=== PATIENT | female | born 1945 | race Caucasian/White ===

== ENCOUNTER → 2016-10-19 09:56 | Outpatient (CLI) | payer MEDICARE ==
[2016-09-16 08:58] VITALS: BMI 21.9
[~2016-10-19 09:56] MED LIST: BAYER CHEWABLE81 MG PO; CALTRATE 600 M600 M1 PO; CARDIZEM CD180 MG PO; COZAAR50 MG PO; GLUCOSAMINE & C1 CAP PO; HYDROCODON-ACE1 EAC7 PO; HYZAAR 100-25 T1 TAB PO; HYZAAR 50-12.51 TAB PO; K-DUR20 MEQ PO; LASIX40 MG PO; MILK THISTLE140 MG PO; MULTIPLE VITAMI1 TA1 PO; NEPHRO-VITE RX1 TAB; NEPHRO-VITE RX1 TAB PO; OMEGA 3 FISH OI1 CAP PO; PROBIOTIC1 EAC1 PO; ULTRAM50 MG PO; VITAMIN E400 UNI2 PO
== END | disposition home or self-care (01) ==
LOC: D.RAD 09:56
DX: Z98.890 Other specified postprocedural states (principal)

== ENCOUNTER → 2018-06-13 18:44 | Outpatient (CLI) | payer MEDICARE ==
[2016-09-16 08:58] VITALS: BMI 21.9
== END | disposition home or self-care (01) ==
LOC: D.MAMMO 11:30
DX: Z12.31 Encounter for screening mammogram for malignant neoplasm of breast (principal)

== ENCOUNTER 2021-02-24 09:09 | Inpatient (IN) | payer MEDICARE ==
[~2021-02-24] VITALS: Ht 154.9 cm; Wt 51.4 kg
--- NOTE | ~2021-02-24 | HEMODYNAMI ---
PATIENT:CASSANDRA BEARD MEDICAL RECORD: [id number] : 41 [id number] ADMISSION DATE: 02/24/21 Generatedon:110:50 Patient name: CASSANDRA BEARD Patient #: [id number] : 1945 Date of study: 03/02/2021 Page: Of Hemodynamic Procedure Report Patient Data Patient Demographics Procedure consent was obtained First Name: CASSANDRA Gender: Female Last Name: CHIRAG : 1945 Middle Initial: M Age: 75 year(s) Patient #: [id number] Race: SSN: [id number] Additional ID: [id number] Contact details Address: [address] [place] [address] State: [place] City: [place] Zip code: [address] Past Medical History Allergies Allergen Reaction Date Comments Reported Other allergy 02/28/2021 MPEREDINE, RYANN INHIBITORS, PCN, AVALIDE, BENICAR Other allergy [facility]/02/[facility] Ad[facility] Admission Data Admission Date: 02/24/2021 Admission Time: 12:19 Arrival Date: 02/24/2021 Arrival Time: 12:19 Admit Source: Emergency Insurance Payor: Medicare department [facility] #: [id number] Room #: D2103 Height (in.): 60.63 BSA: 1.47 (m2) Height (cm.): 154 BMI: 21.5 (kg/m2) Weight (lbs.): 112.44 Weight (kg.): 51 Lab Results Lab Result Date: 03/02/2021 Lab Result Time: 0:00 Biochemistry Name Units Result Min Max BUN mg/dl 19 --(----)*- 7 18 Creatinine mg/dl 0.8 --(-*--)-- 0.6 1.3 eGFR ml/min 73.49357 *-(----)-- 90 120 NONAFRICAN CBC Name Units Result Min Max Hematocrit % 36.3 *-(----)-- 42 54 Hemoglobin g/dl 12.5 *-(----)-- 13.5 17.5 Procedure Procedure Types Cath Procedure Diagnostic Procedure Right Heart RHC and LHC w/Coronaries Sedation Charges Moderate Sedation 10-24 minutes Procedure Description Procedure Date Procedure Date: 03/02/2021 Procedure Start Time: 10:29 Procedure End Time: 10:47 Procedure Staff Name Function Brandon Reyes MD Performing Physician Xiao Jonas RT Monitor Denny Vasquez RN Nurse Kassandra Guthrie RT Scrub Procedure Data Cath Procedure Fluoroscopy Diagnostic fluoroscopy Total fluoroscopy Time: 2.2 time: 2.2 min min Diagnostic fluoroscopy Total fluoroscopy dose: 207 dose: 207 mGy mGy Contrast Material Contrast Material Type Amount (ml) Isovue 300 52 Entry Location Entry Primary Successful Side Size Upsize Upsize Entry Closure Succes sful Closure Location (Fr) 1 (Fr) 2 (Fr) Remarks Device Remarks Femoral Right 5 Fr Exoseal artery Femoral Right 7 Fr vein Short Estimated blood loss: 10 ml Diagnostic catheters Device Type Used For End Catheter Placement SWAN 7Fr Thermodilution Pressure cather (131F7P) Measurement MULTIPACK JL 4.0 5Fr Procedure catheter MULTIPACK 3DRC 5Fr Procedure catheter MULTIPACK Pigtail 5 Fr Ventriculography catheter Procedure Complications No complications Procedure Medications Medication Administration Route Dosage 0.9% NaCl I.V. 100 ml/hr Oxygen etCO2 Nasal cannula 2 l/min Heparin Flush Bag added to field 2 bags (1000units/500ml NS) Lidocaine 2% added to field 20 Versed I.V. 0.5 mg Fentanyl I.V. 25 mcg Versed I.V. 0.5 mg Fentanyl I.V. 25 mcg Hemodynamics Rest BSA: 1.47 (m2) HGB: 12.5 (g/dl) O2 Consumption: Estimated: 131.38 (ml/min) O2 Co nsumption indexed: Estimated:89.37 (ml/min/m) Heart Rate: 67 (bpm) Pressure Samples Time Site Value (mmHg) Purpose Heart Use Rate(bpm) 10:34 PA 32/-1(9) Snapshot 65 10:35 PCW 8/21(10) Snapshot 54 10:35 PA 36/9(19) Snapshot 66 10:36 RV 31/-4,0 Snapshot 65 10:37 AO 103/32(33) Snapshot 66 10:41 LV 80/-1,6 Snapshot 68 Gradients Valve Time Site Site Mean SEP/DFP Peak To Heart Use 1 2 (mmHg) (sec/min) Peak Rate (mmHg) (bpm) Aortic 10:42 LV AO 65 Snapshots Pre Cath Intra NCS Post Cath Vital Signs Time Heart Resp SPO2 etCO2 NIBP Rhythm Pain Sedation Rate (ipm) (%) (mmHg) (mmHg) Status Level (bpm) 10:20:57 64 21 96 0 102/61(84) Paced 0 (11) 10(A) , No pain 10:25:01 64 15 97 0 88/48(75) Paced 0 (11) 10(A) , No pain 10:28:58 61 14 96 0 93/53(80) Paced 0 (11) 10(A) , No pain 10:32:56 66 13 96 0 104/57(75) Paced 0 (11) 9(A) , No pain 10:36:56 66 37 94 0 96/61(67) Paced 0 (11) 9(A) , No pain 10:40:55 67 22 93 0 95/56(66) Paced 0 (11) 10(A) , No pain 10:44:57 67 20 95 0 98/48(80) Paced 0 (11) 10(A) , No pain Medications Time Medication Route Dose Verified Delivered Reason Notes Eff ectiveness by by 10:22:06 0.9% NaCl I.V. 100 Denny Denny Per ml/hr Christina Vasquez physician RN RN 10:22:15 Oxygen etCO2 2 Denny Denny for low 02 Nasal l/min Lorigan Lorigan sats cannula RN RN 10:22:24 Heparin Flush added 2 Denny Denny used for Bag to bags Lorigan Lorigan procedure (1000units/500ml field RN RN NS) 10:22:35 Lidocaine 2% added 20ml Denny Denny for local to vial Lorigan Lorigan anesthetic field RN RN 10:25:39 Versed I.V. 0.5 Denny Denny for mg Lorigan Lorigan sedation RN RN 10:25:47 Fentanyl I.V. 25 Denny Denny for mcg Lorigan Lorigan sedation RN RN 10:29:58 Versed I.V. 0.5 Denny Denny for mg Lorigan Lorigan sedation RN RN 10:30:04 Fentanyl I.V. 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 9:58:45 Denny Vasquez RN sent for patient. Start room use. 9:59:19 Time tracking: Regular hours (M-F 7:00 - 5:00) 9:59:24 Plan of Care:Hemodynamics will remain stable., Cardiac rhythm will remain stable., Comfort level will be maintained., Respiratory function will remain adequate., Patient/ family verbilizes understanding of procedure., Procedure tolerated without complication., Recovers from procedure without complications.. 10:04:31 Lab Result : BUN 19 mg/dl 10:04:31 Lab Result : Creatinine 0.8 mg/dl 10:04:31 Lab Result : eGFR NONAFRICAN 73.34629 ml/min 10:04:31 Lab Result : Hemoglobin 12.5 g/dl 10:04:31 Lab Result : Hematocrit 36.3 % 10:06:21 Lab results completed and on chart. 10:07:02 Patient received from Med II to CCL 2 Alert and oriented. Tansferred to table in Supine position. 10:07:06 Warm blankets applied, and shaan hugger turned on for patient comfort. 10:07:06 Correct patient and procedure confirmed by team. 10:07:07 ECG and BP/O2 sat monitors applied to patient. 10:19:43 Vital chart was started 10:19:44 Baseline sample Acquired. 10:19:48 Rhythm: sinus rhythm 10:19:50 Full Disclosure recording started 10:19:56 H&P Date Dictated: 03/02/2021 Within 30 days and on chart.. 10:19:58 Pre-procedure instructions explained to patient. 10:20:00 Family in waiting room. 10:20:25 Patient NPO since Midnight. 10:20:38 Patient allergic to Other allergysee chrt 10:20:41 Is the patient allergic to Iodine/contrast media? No. 10:20:42 Was the patient premedicated? Yes 10:20:44 Is patient on blood thinner?No 10:20:46 Patient diabetic? No. 10:20:51 Snore? No 10:20:54 Sleep apnea? No 10:21:02 Dentures? Yes out 10:21:08 Patient pain scale 0/10 ?. 10:21:15 IV patent on arrival in left forearm with 0.9% NaCl at [facility] 10:21:23 Right groin area was prepped with chlora-prep and draped in sterile fashion 10:21:24 Alarms reviewed by R. N. 10:21:25 Sharps counted by scrub and verified by R.N. 10:21:53 Use device set Femoral Dx 10:22:06 0.9% NaCl 100 ml/hr I.V. was administered by Denny Vasquez RN; Per physician; Verbal order read back and verified. 10:22:15 Oxygen 2 l/min etCO2 Nasal cannula was administered by Denny Vasquez RN; for low 02 sats; Verbal order read back and verified. 10:22:24 Heparin Flush Bag (1000units/500ml NS) 2 bags added to field was administered by Denny Vasquez RN; used for procedure; Verbal order read back and verified. 10:22:35 Lidocaine 2% 20ml vial added to field was administered by Denny Vasquez RN; for local anesthetic; Verbal order read back and verified. 10:23:19 ACIST Syringe (28029) opened to sterile field. 10:23:20 Bag Decanter (2001S) opened to sterile field. 10:23:20 Medline Cath Pack ([id number]) opened to sterile field. 10:23:27 ACIST Hand Control (45209) opened to sterile field. 10:23:28 ACIST Manifold (26878) opened to sterile field. 10:23:29 DIAGNOSTIC Multipack 5Fr catheter set (EQ1063) opened to sterile field. 10:23:29 Tegaderm 4 x 4 (1626W) opened to sterile field. 10:23:31 SHEATH 5FR Riner (SIF710) opened to sterile field. 10:23:32 EMERALD Guide Wire (559-238) opened to sterile field. 10:25:08 Physician arrived 10:25:09 --------ALL STOP TIME OUT------ 10:25:09 Final Timeout: patient, procedure, and site verified with staff and physician. All members of the team are in agreement. 10:25:12 Right groin site verified by team. 10:25:15 Fire Safety Assessment: A--An alcohol-based skin anteseptic being used preoperatively., C--Open oxygen or nitrous oxide is being used., D--An ESU, laser, or fiber-optic light is being used. 10:25:19 Physical assessment completed. ASA score P 2 - A patient with mild systemic disease as per Brandon Reyes MD. 10:25:26 2) 60-89 Mildly reduced kidney function, and other findings (as for stage 1) point to kidney disease. 10:25:39 Versed 0.5 mg I.V. was administered by Denny Vasquez RN; for sedation; Verbal order read back and verified. 10:25:47 Fentanyl 25 mcg I.V. was administered by Denny Vasquez RN; for sedation; Verbal order read back and verified. 10:25:53 Maximum allowable contrast dose (3.7 X eGFR X 0.75)205 ml. 10:26:00 Sedation plan: IV Moderate Sedation Medication:Versed, Fentanyl 10:28:44 Procedure started. 10:28:46 SHEATH 7FR Riner (KWL047) opened to sterile field. 10:29:04 Local anesthetic to right femoral artery with Lidocaine 2% by Brandon Reyes MD.INITIAL ACCESS ONLY 10:29:58 Versed 0.5 mg I.V. was administered by Denny Vasquez RN; for sedation; Verbal order read back and verified. 10:30:04 Fentanyl 25 mcg I.V. was administered by Denny Vasquez RN; for sedation; Verbal order read back and verified. 10:30:25 A 5 Fr sheath was inserted into the Right Femoral artery 10:30:55 A 7 Fr Short sheath was inserted into the Right Femoral vein 10:33:09 [place] "C" tip catheter inserted 10:33:17 A SWAN 7Fr Thermodilution cather (131F7P) was advanced over the wire and used for Pressure Measurement. 10:33:50 Zero performed for pressure channel P1 10:37:23 Right heart pressures obtained. 10:37:27 Catheter removed. 10:37:37 A MULTIPACK JL 4.0 5Fr catheter was advanced over the wire and used for Procedure. 10:38:06 LCA angiography performed. 10:39:41 Catheter removed. 10:39:48 A MULTIPACK 3DRC 5Fr catheter was advanced over the wire and used for Procedure. 10:39:54 RCA angiography performed. 10:40:14 Catheter removed. 10:40:40 A MULTIPACK Pigtail 5 Fr catheter was advanced over the wire and used for Ventriculography. 10:42:41 EXOSEAL 5Fr (EX500) opened to sterile field. 10:43:02 Sheath removed intact; hemostasis achieved with Exoseal to the Right Femoral artery. 10:43:58 Procedure ended.(Physican Out) 10:44:16 Fluoroscopy time 02.20 minutes. 10:44:20 Fluoroscopy dose: 207 mGy 10:44:20 Flurop Dose total: 207 10:44:25 Dose Area Product 01960 mGy/cm. 10:44:29 Contrast amount:Isovue 300 52ml. 10:44:32 Maximum allowable dose exceeded? No. 10:44:34 Insertion/operative site no bleeding no hematoma. 10:44:39 Post-op/insertion site Right Femoral artery dressed using a 4 x 4 and Tegaderm. 10:44:47 Post-op/insertion site Right Femoral vein dressed using a 4 x 4 and Tegaderm. 10:44:50 Post Procedure Pulses reassessed and unchanged 10:45:00 Post-procedure physical assessment completed. ASA score P 2 - A patient with mild systemic disease as per Brandon Reyes MD. 10:45:09 Post procedure rhythm: unchanged. 10:45:12 Estimated blood loss: 10 ml 10:45:14 Post procedure instruction explained to patient.Patient verbalizes understanding. 10:46:51 Procedure type changed to Cath procedure, Diagnostic procedure, Right Heart, RHC and LHC w/Coronaries, Sedation Charges, Moderate Sedation 10-24 minutes 10:46:52 Procedure and supply charges have been captured, reviewed, submitted and are correct. 10:47:22 Procedure Complication : No complications 10:47:26 Vital chart was stopped 10:47:30 [facility] Findings: mild to moderate CAD (<70%) 10:47:34 Operative report dictated upon procedure completion. 10:47:36 See physician's report for complete and final results. 10:47:38 Report given to [facility]. 10:47:41 Patient transfered to [facility] with Bed. 10:47:43 Procedure ended. 10:47:43 Full Disclosure recording stopped 10:47:51 End room use (Document Last) 10:48:21 End room use (Document Last) Device Usage Item Name Manufacture Quantity Catalog Hospital Part Current Minima l Lot# / Number Charge Number Stock Stock Serial# Code ACIST Syringe Acist 1 34065 032638 624626 [id number] 20 (44796) Medical Systems Inc Bag Decanter Microtek 1 2001S 055553 81164 836988 5 (2001S) Medical Inc. Medline Cath Medline 1 [id number] 220523 93187 833011 5 Pack ([id number]) ACIST Hand Acist 1 14323 855323 594381 209005 5 Control Medical (31053) Systems Inc ACIST Manifold Acist 1 74748 712740 318427 767882 5 (88071) Medical Systems Inc DIAGNOSTIC Cardinal 1 JA8872 162934 72832 303244 30 Multipack 5Fr Health catheter set ([id number]) Tegaderm 4 x 4 3M 1 1626W 061239 526203 656413 5 (1626W) SHEATH 5FR Terumo 1 [id number] 311243 130584 521169 5 Riner (YTL092) EMERALD Guide Cardinal 1 502-455 454400 035861 096548 5 Wire (502-455) Health SHEATH 7FR Terumo 1 IAG363 350051 550668 134418 5 Riner (ARB197) SWAN 7Fr Jovel 1 131F7P 848725 88308 466339 3 Thermodilution Lifesciences cather (131F7P) MULTIPACK JL Cardinal 1 670768 5 4.0 5Fr Health catheter MULTIPACK 3DRC Cardinal 1 [id number] 5 5Fr catheter Health MULTIPACK Cardinal 1 552644 5 Pigtail 5 Fr Health catheter EXOSEAL 5Fr Cardinal 1 EX500 695227 855026 629059 10 (EX500) Health Signature Audit [place] Stage Time Signature Unsigned Intra-Procedure 03/02/2021 Xiao Jonas 10:48:21 AM RT(R) Intra-Procedure 03/02/2021 Denny 10:49:34 AM Christina RN Intra-Procedure 03/02/2021 Brandon Perry 10:50:08 NEERAJ Arreguin MD Signatures Performing Physician : Signature : Brandon Reyes MD Date : Time : Monitor : Xiao Pritesh Signature : RT Date : Time : Nurse : Denny Lorigan Signature : RN Date : Time : [facility] [address] [place] [address]
[2021-02-24 10:01] LABS: BASOPHILS 0.2 % (0-2); EOSINOPHILS 3.3 % (0-7); HEMATOCRIT 41.1 % (36.0-48.0); HEMOGLOBIN 14.4 g/dL (12-16); LYMPHOCYTES 5.5 % (15-50); MCH 33.5 pg (26.0-34.0); MCV 95.8 fL (80.0-100.0); MEAN PLATELET VOLUME 9.6 fL (7.4-10.4); MONOCYTES 7.4 % (2-11); NEUTROPHILS 83.6 % (40-80); RDW 12.9 % (11.5-14.5); WBC 10.3 10x3/uL (4.8-10.8)
[2021-02-24 10:02] LABS: PLATELET COUNT 180 10x3/uL (130-400)
[2021-02-24 10:18] LABS: APTT 36.5 SECONDS (22.8-39.4); INR 1.16 (0.85-1.17); PROTIME 13.7 SECONDS (11.6-15.0)
[2021-02-24 10:20] LABS: ALBUMIN 3.1 g/dL (3.4-5.0); ALKALINE PHOSPHATASE 86 U/L (30-120); ALT (SGPT) 47 U/L (10-68); BILIRUBIN - TOTAL 1.07 mg/dL (0.2-1.3); CALCIUM 10.1 mg/dL (8.5-10.1); CARBON DIOXIDE 29.9 mmol/L (21.0-32.0); CHLORIDE - SERUM 97 mmol/L (98-107); CKMB 17.6 U/L (0.0-3.6); CREATINE KINASE 241 UL (21-215); CREATININE - SERUM 0.8 mg/dL (0.6-1.3); PRO BNP 4811 pg/mL (0-450); PROTEIN - SERUM 7.9 g/dL (6.4-8.2); SODIUM 134 mmol/L (136-145); TROPONIN-I < 0.017 ng/mL (0.000-0.060); UREA NITROGEN 14 mg/dL (7-18); eGFR NON AFRICAN AMERICAN 74 mL/min (90-120)
[2021-02-24 10:21] LABS: CALC OSMOLALITY 270 mosm/kg (275-300); GLUCOSE 143 mg/dL (74-106)
[2021-02-24 10:28] LABS: SARS-CoV-2 ANTIGEN NEGATIVE- SARS-COV-2 (NEGATIVE)
[2021-02-24 10:29] LABS: POTASSIUM - SERUM 2.8 mmol/L (3.5-5.1)
[2021-02-24] MEDS ORDERED: SYNTHROID25 MCG PO (12:28)
[2021-02-24] MEDS ORDERED: CLONIDINE HCL0.1 MG PO (12:29)
[2021-02-24] MEDS ORDERED: NORVASC2.5 MG PO (12:29)
[2021-02-24] MEDS ORDERED: K-TAB10 MEQ (12:29)
[2021-02-24] MEDS ORDERED: ESTRACE 0.0142.5 GM VG (12:30)
[2021-02-24] MEDS ORDERED: MIRAPEX1 MG PO (12:30)
[2021-02-24] MEDS ORDERED: OMEGA-3100 MG (12:32)
[2021-02-24] MEDS ORDERED: GLUCOSAMINE HC500 MG (12:32)
[2021-02-24] MEDS ORDERED: VITAMIN E200 UNI1 PO (12:33)
[2021-02-24 15:25] VITALS: BP 135/84
[2021-02-24 16:00] VITALS: BP 135/84
[2021-02-24 19:38] VITALS: BP 96/57
--- NOTE | 2021-02-24 20:45 | NUR ---
PTS SERUM K 3.0 AT REDRAW 1855. ADMINISTERED PTS SCHEDULED MICRO K 30MEQ + 40MEQ PER EP.
--- NOTE | 2021-02-25 04:01 | NUR ---
PTS SERUM K REDRAW 3.6.
[2021-02-25 04:24] VITALS: BP 110/71
[2021-02-25 06:36] LABS: BASOPHILS 0.4 % (0-2); EOSINOPHILS 8.6 % (0-7); HEMATOCRIT 37.8 % (36.0-48.0); HEMOGLOBIN 13.2 g/dL (12-16); LYMPHOCYTES 11.9 % (15-50); MCH 33.1 pg (26.0-34.0); MCHC 34.9 g/dL (31.0-37.0); MCV 94.9 fL (80.0-100.0); MEAN PLATELET VOLUME 9.2 fL (7.4-10.4); MONOCYTES 11.3 % (2-11); NEUTROPHILS 67.8 % (40-80); PLATELET COUNT 180 10x3/uL (130-400); RBC 3.98 10x6/uL (4.00-5.40); RDW 12.7 % (11.5-14.5); WBC 8.2 10x3/uL (4.8-10.8)
[2021-02-25 06:49] LABS: ANION GAP 8.6 mmol/L (8-16); CALCIUM 9.1 mg/dL (8.5-10.1); CARBON DIOXIDE 33.4 mmol/L (21.0-32.0); CREATININE - SERUM 0.9 mg/dL (0.6-1.3)
[2021-02-25 07:54] VITALS: BP 107/80
[2021-02-25 10:58] VITALS: BP 88/53
[2021-02-25 12:50] VITALS: BMI 22.6
[2021-02-25 15:09] VITALS: BP 120/77
[2021-02-25 22:22] VITALS: BP 100/67
--- NOTE | 2021-02-25 22:50 | NUR ---
REPORT RECEIVED. PT A&O, UP IN BED ON PHONE WITH FAMILY. NO S/S OF DISTRESS OBSERVED. RR EVEN & UNLABORED ON 7L. SR 87 ON TELE. L FA INFUSING BUMEX CONT AT 5CC/HR. NO S/S OF INFILTRATION. DRESSING C/D/I. BED LOCKED AND LOWERED. CL IN REACH. ASSESSMENT COMPLETE. WILL CONT POC.
[2021-02-25 23:55] VITALS: BP 118/66
[2021-02-26 03:35] VITALS: BP 113/70
--- NOTE | 2021-02-26 07:00 | NUR ---
RECEIVED REPORT. ASSUMED CARE OF PATIENT. PATIENT RESTING IN BED WITH EYES OPEN. RESP EVEN AND UNLABORED. BEDSIDE SHIFT REPORT COMPLETE, WHITE BOARD UPDATED. NO DISTRESS. CALL LIGHT WITHIN REACH.
[2021-02-26 07:04] LABS: ANION GAP 10.6 mmol/L (8-16); CALCIUM 8.5 mg/dL (8.5-10.1); CARBON DIOXIDE 33.1 mmol/L (21.0-32.0); CREATININE - SERUM 0.9 mg/dL (0.6-1.3); POTASSIUM - SERUM 3.7 mmol/L (3.5-5.1)
[2021-02-26 08:25] VITALS: BP 112/76
--- NOTE | 2021-02-26 10:40 | NUR ---
CHAIR PLACED TO PATIENT ROOM REQUESTED PER PATIENT AND .
[2021-02-26 15:56] VITALS: BP 111/73
--- NOTE | 2021-02-26 16:55 | NUR ---
INCENTIVE SPIROMETER PROVIDED TO PATIENT, INSTRUCTIONS PROVIDED.
[2021-02-26 20:09] VITALS: BP 104/63
--- NOTE | 2021-02-26 22:03 | NUR ---
INITIAL ROUNDS COMPLETED AT 1915 HRS. PT DENIED ANY DISCOMFORT. ASSESSMENT COMPLETED AT 1999 HRS. VSS. SR PER CM HR 72. ALERT AND ORIENTED TO PERSON, PLACE AND TIME. [place]. PALPABLE PERIPHERAL PULSES. O2 4LNC. IV TO LFA WITH BUMEX DRIP AT 5MG/HR. IV PATENT. LUNGS DIMINISHED IN BASES BILAT. PM MEDS GIVEN PER ORDERS. PT CURRENTLY WATCHING TV. SR UP X1, CALL LIGHT WITHIN REACH.
[2021-02-27 00:01] VITALS: BP 112/76
--- NOTE | 2021-02-27 00:19 | NUR ---
PT RESTING WITH EYES CLOSED. RESP EVEN AND REGULAR. CALL LIGHT WITHIN REACH.
--- NOTE | 2021-02-27 02:10 | NUR ---
PT RESTING WITH EYES CLOSED. RESP EVEN AND REGULAR. CALL LIGHT WITHIN REACH.
--- NOTE | 2021-02-27 02:13 | NUR ---
PT RESTING WITH EYES CLOSED. RESP EVEN AND REGULAR. CALL LIGHT WITHIN REACH.
--- NOTE | 2021-02-27 04:32 | NUR ---
PT AWAKE; DENIES ANY DISCOMFORT. CALL LIGHT WITHIN REACH.
[2021-02-27 04:49] VITALS: BP 115/74
--- NOTE | 2021-02-27 06:04 | NUR ---
PT RESTED WELL DURING SHIFT. DENIED ANY DISCOMFORT. NEEDS MET; WILL CONTINUE TO MONITOR.
[2021-02-27 06:34] LABS: CALCIUM 8.7 mg/dL (8.5-10.1); CREATININE - SERUM 1.1 mg/dL (0.6-1.3)
--- NOTE | 2021-02-27 07:00 | NUR ---
RECEIVED REPORT. ASSUMED CARE OF PATIENT. CALL LIGHT WITHIN REACH. NO DISTRESS. WHITE BOARD UPDATED, BEDSIDE SHIFT REPORT COMPLETE. NO DISTRESS. RESP EVEN AND UNLABORED, ATTENTION TOWARD TELEVISION AT THIS TIME.
--- NOTE | 2021-02-27 07:20 | NUR ---
EP INITIATED FOR K+ OF 3.0
--- NOTE | 2021-02-27 07:35 | HP ---
PATIENT: CASSANDRA OLVERA MEDICAL RECORD: [id number] ACCOUNT: [id number] LOCATION:[address] : [birth year] ADMISSION DATE: 02/24/21 PCP: No PCP HISTORY AND PHYSICAL EXAMINATION REASON FOR ADMISSION: Shortness of breath, fatigue and cough. HISTORY OF PRESENT ILLNESS: The patient is a 75-year-old female with remote history of mitral valve prolapse, pericardial effusion post-pericardiotomy several years ago. She has been in her usual state of good health until approximately 5 days ago. Said she had worked in the yard all day on Sunday and towards the end of the day, she felt very fatigued. She went to bed and the next day she did not feel a whole lot better. She had a little cough, but it is nonproductive. She denied fever, but had increasing shortness of breath. She was seen by nurse practitioner following Sunday and was thought to have bronchitis or early pneumonia. She was placed on doxycycline. Proventil inhaler was given. She was advised to see me in followup. She was seen in the office this morning and was acutely short of breath. She had borrowed a friend's oxygen, was on 2 liters, and she was satting 80%. Chest x-ray showed bilateral pleural effusions, possible right lower lobe infiltrate or atelectasis. Her white count was 10,000 with left shift. She was then direct admitted through the ER for congestive heart failure, possible community-acquired pneumonia. She has had some sputum with some blood streaks she states. Denies chest pain. She has seen Dr. Mathew regularly for pacemaker followup and said she had an echocardiogram in April of 2020 that was "stable." PAST MEDICAL HISTORY: Pericardial effusion post-pericardiotomy, sick sinus syndrome with pacemaker, hypertension, remote history of Lyme disease, restless leg syndrome, vitamin D deficiency, history of supraventricular tachycardia, history of skin cancer on her face, ophthalmic migraine, hyperlipidemia, hypothyroidism, history of mitral valve prolapse. PAST SURGICAL HISTORY: Pacemaker placement, pericardiotomy, hysterectomy, radiofrequency ablation for arrhythmia, appendectomy squamous cell and basal cell carcinomas removed from her face and forehead. FAMILY HISTORY: Mother at 72 from renal cell carcinoma. SOCIAL HISTORY: . 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 She is a lifelong nonsmoker. Drinks occasional wine. ALLERGIES: DARVOCET, DEMEROL, DYAZIDE, LOSARTAN AND PENICILLIN. HOME MEDICATIONS: Levothyroxine 25 mcg p.o. every morning, indapamide 1.25 mg daily, amlodipine 2.5 mg daily, clonidine 0.1 mg p.r.n. systolic greater than 180, potassium ER 10 mEq daily, Estrace 0.01% vaginal cream twice weekly, Mirapex 0.125 mg p.o. at bedtime, milk thistle 1 daily, glucosamine 1500 mg one daily, omega 3 fish oil 1 daily, vitamin E 400 units 1 daily, Biotin 10,000 units daily, B complex 1 daily. REVIEW OF SYSTEMS: GENERAL: Fatigue for the last 5 days. Denies fever. HEENT: No recent visual change, sinus congestion or sore throat. RESPIRATORY: Increasing shortness of breath with intermittent cough with some pink sputum. Denies chest pain. HISTORY AND PHYSICAL [id number] CASSANDRA OLVERA CARDIAC: No exertional chest pain, claudication. Did notice some mild edema in both of her feet in the last 48 hours. ENDOCRINE: Denies polyuria, polydipsia, heat or cold intolerance. NEUROLOGIC: No history of stroke or TIA. Has had remote vascular headaches and ophthalmic migraines that have been fairly stable recently. MUSCULOSKELETAL: No arthralgias. INTEGUMENT: No rash or itching. PHYSICAL EXAMINATION: GENERAL: The patient is alert and dyspneic, no acute distress. VITAL SIGNS: Temperature 97.7 Fahrenheit orally, pulse 96 and regular, respirations are 25, blood pressure 172/102 with a sat of 87% on 3 liters. HEENT: Normocephalic. Eyes are clear. Oropharynx, dry mucous membranes. NECK: Supple, without bruits. CHEST: Bibasilar crackles without wheeze. HEART: Tachycardic with IV/ systolic ejection murmur. BREASTS: Symmetrical. ABDOMEN: Soft, nontender. PELVIC: Deferred. EXTREMITIES: She has 2+ bipedal edema. No cyanosis appreciated. NEUROLOGIC: Grossly intact. No localizing motor or sensory deficits are appreciated. LABORATORY AND DIAGNOSTIC DATA: ABG on 6 liters showed a pH of 7.5, pCO2 of 31, pO2 of 51. H&H is 12.9 and 38. Lactic acid is 1.69, glucose 167, potassium low at 2.8. Liver functions are normal. Troponin is less than 0.017. However, CPK-MB is elevated at 17.6 and creatine is 241. ProBNP is 4811. INR is 1.16. White count is 10,300 with left shift. Recent SARS antibody and RNA were both negative in the office this week. Chest x-ray shows bilateral pleural effusions, interstitial edema, cardiomegaly and pacemaker. ASSESSMENT: 1. Hypoxic respiratory failure. 2. Congestive heart failure. 3. Aortic murmur. 4. Mitral valve prolapse. 5. Hypokalemia. 6. Hypertension. 7. Bronchitis. 8. History of pericardial effusion, hyperlipidemia, hypothyroidism. PLAN: The patient will be admitted to the med floor on IV diuretics. Serial cardiac enzymes. Echocardiogram has been ordered. Dr. Soto has spoken with Dr. Whalen concerning this admission. I have explained current diagnoses, workup with Ms. Olvera. We have also placed him on antibiotics empirically with pulmonary consult. TRANSINT:[id number] Voice Confirmation ID: [id number] DOCUMENT ID: [id number] HISTORY AND PHYSICAL [id number] CASSANDRA OLVERA TIMOTHY MD at 0735 CC: [id number] DICTATION DATE: 02/24/21 1403 FUSION JUNCTURE GRINDER: 02/24/21 1527 ADM IN [place] [id number] [place] [address]
--- NOTE | 2021-02-27 07:46 | NUR ---
BUMEX GTT REDUCED TO 2.5ML/HR ORDERED AT THIS TIME. PATIENT MADE AWARE OF NEW CHANGES TO MEDICATIONS MADE BY .
[2021-02-27 08:00] VITALS: BP 119/79
[2021-02-27 12:00] VITALS: BP 100/63
--- NOTE | 2021-02-27 12:15 | NUR ---
ORDERS INPUTTED FOR PATRICIA IN AM, PATIENT TO BE NPO AFTER MIDNIGHT TONIGHT.
--- NOTE | 2021-02-27 14:50 | EC ---
PATIENT:CASSANDRA BEARD DATE OF SERVICE: 02/24/21 SEX: F MEDICAL RECORD: [id number] DATE OF : 41 LOCATION:D.M2 D.210 AGE OF PATIENT: 75 ADMISSION DATE: 02/24/21 REFERRING PHYSICIAN: INTERPRETING PHYSICIAN: BLANCA XIAO MD ECHOCARDIOGRAM REPORT ECHO CHARGES 4 ECHO COMPLETE Date: 02/25/21 CLINICAL DIAGNOSIS: CARDIOMYOPATHY ECHOCARDIOGRAPHIC MEASUREMENTS (adult normal given) AC root (d.<3.7cm) 2.7 cm LV Septum d (<1.2 cm> 1.1 cm Valve Excursion 1.7 cm LV Septum (systole) 1.2 cm Left Atria (s.<4.0cm> 3.5 cm LVPW d(<1.2cm) 0.7 cm RV (d.<2.3cm) 2.1 cm LVPW (sytole) 1.3 cm LV diastole(<5.6CM) 5.3 cm MV E-F(>70mm/sec) cm LV systole 3.2 cm LVOT Diameter 1.6 cm MV exc.(>10mm) 1.4 cm Est.ejection fraction (50-75%) % DOPPLER: LVIT cm/sec A 34 cm/sec E 132 cm/sec LA cm/sec RVSP 49 mmHg LVOT 91 cm/sec AOP1/2T m/s Asc. Ao 277 cm/sec RVOT 54 cm/sec RA cm/sec PA 59 cm/sec AV Gradient Peak 30.6 mmHg AV Mean 20.7 mmHg AV Area 0.4 cm MV Gradient Peak 10.0 mmHg MV Mean 2.7 mmHg MV Area cm COMMENTS: Signaling Project Engineer: Jaky HOANG Millwright Instructor: 5 Dr. Xiao TAPE# Pericardial Effusion N DATE OF SERVICE: CLINICAL INDICATION: Cardiomyopathy. INTERPRETATION: Normal left ventricular chamber size and contractile function with ejection fraction of 55% to 60%. Mild left atrial chamber enlargement. Right atrium and right ventricular chamber size and function appears normal. Pacemaker lead visualized in the right heart chambers. Mild thickening and calcification of the aortic valve with decreased cusp excursion. Mild aortic stenosis. Alnx-ci-bevqfmzc aortic regurgitation. Thickened and redundant ECHOCARDIOGRAM REPORT [id number] CASSANDRA BEARD mitral valve with probable flail posterior leaflet/chordae. Moderate mitral regurgitation. Tricuspid valve appears normal. Mild to moderate tricuspid regurgitation. Pulmonic valve not well visualized. No pulmonary regurgitation. No pericardial effusion visualized. IMPRESSION: 1. Normal left ventricular chamber size and contractile function with ejection fraction of 55% to 60%. 2. Mild aortic stenosis and mild to moderate aortic regurgitation. 3. Thickened redundant mitral valve with possible flail posterior leaflet/chordae with moderate mitral regurgitation. 4. Lrod-ao-ozzmuvyr pulmonary regurgitation. Estimated PA pressure is 48 mmHg suggestive of mild pulmonary hypertension. TRANSINT:[id number] Voice Confirmation ID: [id number] DOCUMENT ID: [id number] BLANCA XIAO MD at 1450 CC: [id number] DICTATION DATE: 02/26/21 1737 BOILER COVERER: 02/26/211939 ADM IN [facility] [address] [place] [address]
--- NOTE | 2021-02-27 15:03 | NUR ---
RESTING PEACEFULLY, NO FURTHER HEADACHE AFTER RECEIVING FIORICET. CALL LIGHT WITHIN REACH. NO DISTRESS.
[2021-02-27 16:00] VITALS: BP 104/66
--- NOTE | 2021-02-27 17:21 | NUR ---
SHOWER COMPLETE, RESTING IN BED, BUMEX INFUSING ORDERED. NO DISTRESS.
[2021-02-27 21:00] VITALS: BP 104/63
--- NOTE | 2021-02-27 22:11 | NUR ---
INITIAL ROUNDS COMPLETED AT 1915 HRS. PT RESTING WITH EYES CLOSED. RESP EVEN AND REGULAR. ASSESSMENT COMPLETED AT 2015 HRS. VSS. SR PER CM HR 69. MURMUR NOTED. IV TO LFA WITH BUMEX DRIP AT 2.5CC/HR. IV PATETN. O2 5LNC. LUNGS DIMINISHED IN BASES BILAT. [place]. PALPABLE PERIPHERAL PULES. PM MEDS GIVEN. PT CURRENTLY WATCHING TV. SR UP X1, CALL LIGHT WITHIN REACH.
[2021-02-28] VITALS (7 sets, daily range): BP systolic 105–115; BP diastolic 67–73; Ht 154.9 cm; Wt 51.4 kg
--- NOTE | 2021-02-28 00:29 | NUR ---
PT RESTING WITH EYES CLOSED. RESP EVEN AND REGULAR. SR UP X2, CALL LIGHT WITHIN REACH.
--- NOTE | 2021-02-28 03:16 | NUR ---
PT RESTING WITH EYES CLOSED. RESP EVEN AND REGULAR. CALL LIGHT WITHIN REACH.
--- NOTE | 2021-02-28 04:20 | NUR ---
ZOFRAN 4MG SIVP GIVEN FOR C/O NAUSEA.
--- NOTE | 2021-02-28 05:54 | NUR ---
PT DENIES NAUSEA AT THIS TIME. VSS THROUGHOUT NIGHT. NPO FOR AM PATRICIA. NEEDS ME; WILL CONTINUE TO MONITOR.
[2021-02-28 06:42] LABS: BASOPHILS 0.6 % (0-2); EOSINOPHILS 8.1 % (0-7); HEMATOCRIT 37.8 % (36.0-48.0); HEMOGLOBIN 13.4 g/dL (12-16); LYMPHOCYTES 16.9 % (15-50); MCH 33.1 pg (26.0-34.0); MCHC 35.3 g/dL (31.0-37.0); MCV 93.8 fL (80.0-100.0); MONOCYTES 13.3 % (2-11); NEUTROPHILS 61.1 % (40-80); RBC 4.03 10x6/uL (4.00-5.40); RDW 12.2 % (11.5-14.5); WBC 6.8 10x3/uL (4.8-10.8)
[2021-02-28 07:00] LABS: PLATELET COUNT 235 10x3/uL (130-400)
[2021-02-28 07:06] LABS: ANION GAP 9.1 mmol/L (8-16); CALCIUM 8.7 mg/dL (8.5-10.1); CARBON DIOXIDE 31.5 mmol/L (21.0-32.0); POTASSIUM - SERUM 3.6 mmol/L (3.5-5.1)
--- NOTE | 2021-02-28 09:16 | NUR ---
PATIENT TAKEN BACK FOR PATRICIA PROCEDURE
--- NOTE | 2021-02-28 12:40 | NUR ---
Nutrition Follow-up: Out of room for PATRICIA this AM. Has been eating well. Covid (-). Diet: NPO PO intake: 75-100% Wt: 112# (02/28 - standing); 120# (02/24 - stated) Labs reviewed Meds noted: Bumex, Micro K, Zofran, electrolyte protocol -Resume diet when medically feasible. -Monitor wt. -RD will follow up within 3 days.
--- NOTE | 2021-02-28 20:00 | NUR ---
REPORT RECEIVED. PT A&O, UP IN BED. NO S/S OF DISTRESS OBSERVED. RR EVEN & UNLABORED ON 5L NC. IV TO L FA INFUSING BUMEX CONT AT 2.5CC/HR. SR 68 W/ 1ST DEGREE BLOCK ON TELE. BED LOCKED AND LOWERED, CL IN REACH. ASSESSMENT COMPLETE. WILL CONT POC.
[2021-03-01 04:00] VITALS: BP 105/70
[2021-03-01 07:55] VITALS: BP 111/66
[2021-03-01 09:08] LABS: ANION GAP 6.9 mmol/L (8-16); CALCIUM 8.8 mg/dL (8.5-10.1); CARBON DIOXIDE 32.6 mmol/L (21.0-32.0); CREATININE - SERUM 0.9 mg/dL (0.6-1.3); POTASSIUM - SERUM 3.5 mmol/L (3.5-5.1)
[2021-03-01 12:22] VITALS: BP 100/63
[2021-03-01 15:51] VITALS: BP 109/75
--- NOTE | 2021-03-01 19:30 | NUR ---
PT IN BED, AAO X 4, RESP EVEN AND UNLABORED, NO DISTRESS NOTED, CL IN REACH, SR UP X 2.
[2021-03-01 21:04] VITALS: BP 108/65
[2021-03-02] VITALS (7 sets, daily range): BP systolic 88–142; BP diastolic 55–77
--- NOTE | 2021-03-02 03:07 | NUR ---
I have reviewed this patient and I concur with the Shift Assessment completed by the Licensed Practical Nurse today this shift.
[2021-03-02 05:38] LABS: ANION GAP 10.8 mmol/L (8-16); CALCIUM 8.7 mg/dL (8.5-10.1); CARBON DIOXIDE 31.5 mmol/L (21.0-32.0); CREATININE - SERUM 0.8 mg/dL (0.6-1.3)
[2021-03-02 05:44] LABS: POTASSIUM - SERUM 4.3 mmol/L (3.5-5.1)
--- NOTE | 2021-03-02 07:00 | NUR ---
PT LYING IN BED. RESP EVEN AND UNLABORED. 02 [address]PM [address] NC IN [address]. AAO X4. DENIES NEEDS AT THIS TIME. CLIR. BED IN LOWEST POSITION. SIDE RAILS X2
[2021-03-02 08:47] LABS: BASOPHILS 0.7 % (0-2); EOSINOPHILS 4.9 % (0-7); HEMATOCRIT 36.3 % (36.0-48.0); HEMOGLOBIN 12.5 g/dL (12-16); LYMPHOCYTES 19.1 % (15-50); MCHC 34.5 g/dL (31.0-37.0); MCV 95.5 fL (80.0-100.0); MONOCYTES 12.6 % (2-11); NEUTROPHILS 62.7 % (40-80); PLATELET COUNT 232 10x3/uL (130-400); RDW 12.5 % (11.5-14.5); WBC 6.6 10x3/uL (4.8-10.8)
[2021-03-02 08:54] LABS: CHOL - HDL RATIO 3.5 ratio (2.3-4.1); LDL-HDL RATIO 2.3 ratio (1.5-3.5)
--- NOTE | 2021-03-02 09:23 | NUR ---
I have reviewed this patient and I concur with the Shift Assessment completed by the Licensed Practical Nurse today this shift.
--- NOTE | 2021-03-02 10:00 | NUR ---
PT LEFT UNIT FOR HEART CATH ACCOMPANIED BY HOSPITAL STAFF
--- NOTE | 2021-03-02 11:00 | NUR ---
PT RETURNED TO UNIT ACCOMPANIED BY HOSPITAL STAFF. O2 2 LPM [address] NC IN [address]. VS WNL. RESP EVEN AND UNLABORED. PT SLEEPING BUT RAISES EASILY TO VEBAL STIMULI. DRESSING TO RIGHT GROIN C/D/I. NO HEMATOMA NOTED. PEDAL PULSES PALPABLE AND EQUAL BILATERALLY. INSTRUCTED PT TO LIE FLAT FOR 2 HOURS. PT VERBALIZED UNDERSTANDING. CLIR. BED IN LOWEST POSITION. SIDE RAILS X2
--- NOTE | 2021-03-02 20:54 | NUR ---
RESTING IN BED. APPEARS TIRED, ON ROOM AIR UNTIL O2 SAT CHECKED 84%, PLACED BACK ON O2 2L/NC. HAD LHC TODAY, RIGHT GROIN C/D/I. NO HEMATOMA. PPP
[2021-03-03] VITALS (7 sets, daily range): BP systolic 98–132; BP diastolic 60–80
[2021-03-03 06:00] LABS: ANION GAP 12.4 mmol/L (8-16); CALCIUM 8.7 mg/dL (8.5-10.1); CARBON DIOXIDE 26.4 mmol/L (21.0-32.0); CREATININE - SERUM 0.8 mg/dL (0.6-1.3); POTASSIUM - SERUM 4.8 mmol/L (3.5-5.1)
--- NOTE | 2021-03-03 08:16 | NUR ---
AM MEDS GIVEN AT THIS TIME, RR EVEN NON LABORED, O2 IN PLACE VIA NC. PT AWAKE AND ALERT, ANSWERS QUESTIONS APPROP. NO PAIN OR NEEDS REPORTED. CLWR.
--- NOTE | 2021-03-03 08:19 | TEE ---
PATIENT:CASSANDRA BEARD MEDICAL RECORD: [id number] LOCATION:D.M2 D.210 AGE OF PATIENT: 75 ADMISSION DATE: 02/24/21 SEX: F REFERRING PHYSICIAN: INTERPRETING PHYSICIAN: VIKAS NUNEZ MD TRANSESOPHAGEAL ECHOCARDIOGRAM Date: 02/28/21 PATRICIA CHARGE Y INDICATIONS: MVP PREMEDICATIONS: PATIENT'S RESPONSE PROCEDURE DOPPLER MEASUREMENTS: LVIT LA PA 59 RA LVOT 91 RVOT 54 Asc. Ao 277 AV Gradient Peak 30.6 AV Mean 20.7 AV Area 0.4 MV Gradient Peak 10.0 MV Mean 2.7 MV Area INTERPRETATION: Doppler: 2-D: COLOR FLOW DOPPLER NORMAL SALINE STUDY: MISCELLANOUS: DIAGNOSIS: PLAN: Funeral Greeter:3 Dr. Dos Santos Patent Leather Sorter: Jaky HOANG COMMENTS: DATE OF SERVICE: 02/28/2021 TRANSESOPHAGEAL NOTE DESCRIPTION OF PROCEDURE: After a transesophageal Omniplane probe was placed into the distal esophagus and proximal stomach without difficulty. FINDINGS: As follows: LVH present. LV internal dimensions are normal. Wall motion is normal. EF is greater than or equal to 55%. Aortic valve is TRANSESOPHAGEAL ECHOCARDIOGRAM REPORT [id number] CASSANDRA BEARD tricuspid, good valve excursion. No significant AI. Mitral valve is obviously prolapsed at the posterior leaflet. Severe MR in the anterior directed jet, wrapping around the entire length of the septum. What was read as possible ruptured chordae, I suspect it is just a different planes of the prolapse itself. Right-sided chambers appear grossly normal. Proximal 1 cm vegetation is noted on the tricuspid valve. There is speculated calcium. This could be consistent with old vegetation. There is only mild TR. At the end of the case, the transesophageal Omniplane probe was turned posteriorly and showed minimal atherosclerotic debris in the descending aorta. TRANSINT:[id number] Voice Confirmation ID: [id number] DOCUMENT ID: [id number] at 0819 CC: [id number] DICTATION DATE: 02/28/21 1009 PATCH SETTER: 03/01/21 2359 ADM IN [facility] [address] [place] [address]
--- NOTE | 2021-03-03 11:01 | NUR ---
PT LYING IN BED WITH EYESC CLOSED, RR EVEN NON LABORED. O2 IN PLACE. NO NEEDS VOICED, CLWR.
--- NOTE | 2021-03-03 12:32 | NUR ---
Nutrition Reassessment/Follow-up: Eating well. Diet: Cardiac Wt: 114# (03/03) Labs reviewed Meds noted: Miralax, Colace, Bumex, electrolyte protocol Est needs: 4910-0796 kcal/day (25-30 kcal/kg actual BW) 45-60 g protein/day (0.9-1.1 g/kg actual BW) 0350-4804 mL fluid/day (1 mL/kcal) or per MD Nutrition Diagnosis: -Decreased sodium needs R/T heart failure AEB fluid retention. Nutrition Goals: -PO intake >=75% avg of meals/snacks. -Meet est fluid needs without fluid overload. -Stable dry wt. Nutrition Intervention: -Encourage PO intake and honor food preferences within diet restrictions. -Monitor wt; noted daily wts ordered. -RD will follow up within 7 days if pt still admitted.
--- NOTE | 2021-03-03 13:51 | OP ---
PATIENT NAME: CASSANDRA BEARD MEDICAL RECORD: [id number] :41 LOCATION:D.M2 D.2102 ADMISSION DATE:02/24/21 SURGEON: VIKAS NNUEZ MD DATE OF OPERATION: 03/02/2021 PROCEDURE: Left heart catheterization, selective coronary angiography, as well as right heart catheterization, right femoral artery and vein approach respectively. CATHETERS: A 7-Tanzanian sheath on the venous side, 5-Tanzanian sheath on the arterial side, [place] on the venous side. FINDINGS: Right heart catheterization has RV pressure 32-36/4. PA pressures were 34-36/12. Pulmonary capillary wedge pressure was 10 with V waves approaching 20. Left heart catheterization, selective coronary angiography. Left ventriculography in 30-degree BLACK view shows normal wall motion with a normal EF 50% or better. There is severe MR noted as well. CORONARY ANATOMY: LEFT MAIN: Left main is free of disease. LAD: Free of disease in the diagonal system. CIRCUMFLEX: Free of disease in the marginal system. RIGHT CORONARY ARTERY: Dominant artery, gives rise to PDA, free of disease. IMPRESSION: Mildly elevated right heart pressures. No evidence of constrictive pericarditis with equalization of pressures. Coronary anatomy is normal. TRANSINT:[id number] Voice Confirmation ID: [id number] DOCUMENT ID: [id number] VIKAS NUNEZ MD at 1351 CC: NICOL ESTRELLA and DESIRE LAMBERT MD [id number] DICTATION DATE: 03/02/21 1048 STATE FARM AGENT: 03/02/212104 ADM IN [facility] [address] [place] [address]
--- NOTE | 2021-03-03 19:30 | NUR ---
PT IN BED, AAO X 4, RESP EVEN AND UNLABORED, NO DISTRESS NOTED, CL IN REACH, SR UP X 2.
--- NOTE | 2021-03-04 01:42 | NUR ---
I have reviewed this patient and I concur with the Shift Assessment completed by the Licensed Practical Nurse today this shift.
[2021-03-04 03:45] VITALS: BP 101/57
--- NOTE | 2021-03-04 07:24 | NUR ---
PT LYING IN BED. RESP EVEN AND UNLABORED. AAOX4. ASSESSMENT COMPLETED. DENIES NEEDS AT THIS TIME. CLIR. BED IN LOWEST POSITION. SIDE RAILS X2
[2021-03-04 08:06] VITALS: BP 126/76
--- NOTE | 2021-03-04 10:28 | NUR ---
I have reviewed this patient and I concur with the Shift Assessment completed by the Licensed Practical Nurse today this shift.
[2021-03-04 11:25] VITALS: BP 113/67
[2021-03-04] MEDS ORDERED: COREG 3.1253.125 MG PO (14:31)
[2021-03-04] MEDS ORDERED: ASPIRIN81 MG PO (14:32)
[2021-03-04] MEDS ORDERED: BUMETANIDE1 MG PO (14:33)
--- NOTE | 2021-03-04 16:13 | MORECARE ---
CASE MANAGEMENT DISCHARGE SUMMARY PATIENT: CASSANDAR BEARD UNIT: [id number] ADM DATE: 02/24/21 AGE: 75 : 43 SEX: F ROOM/BED: D.2102 AUTHOR: SID,DOC PHYSICIAN: REFERRING PHYSICIAN: NICOL ESTRELLA MD DATE OF SERVICE: 03/04/21 Case Management Discharge Planning Summary DCP REVIEW SUMMARY ANTICIPATED D/C DATE: 03/04/2021 EXPECTED LOS : 8 CASE STATUS: DCP Initiated INITIAL REVIEW: 02/24/2021 INITIAL REVIEWER: Ruth Gordillo FINAL DISCHARGE DISPOSITION: 01 : Home or Self Care (Routine Discharge) FINAL REVIEWER: FINAL REVIEW DATE: DCP Focus Questions & Answers QUESTION: ANSWER : PATIENT: CASSANDRA BEARD ENCOUNTER: [id number] MEDICAL RECORD#: [id number] ADMISSION DATE: 02/24/2021 DISCHARGE DATE: ATTENDING MD: NICOL CAMPOS : AGE: 75 MARITAL STATUS: W DC PLAN ID: [id number] FACILITY: [facility] PRINTED ON: 03/04/21 16:13 CT All edits/amendments must be made on the electronic document DICTATION DATE: 03/04/211612 TOY ASSEMBLER WOOD: BLAINE 03/04/21 161 RPT#: [id number] DC DATE: STATUS: ADM IN [facility] [address] [place] [address] END OF REPORT
--- NOTE | 2021-03-04 16:25 | MORECARE ---
CASE MANAGEMENT DISCHARGE SUMMARY PATIENT: CASSANDRA BEARD UNIT: [id number] ADM DATE: 02/24/21 AGE: 75 : 43 SEX: F ROOM/BED: D.2103 AUTHOR: SID,DOC PHYSICIAN: REFERRING PHYSICIAN: NICOL BISHOP MD DATE OF SERVICE: 03/04/21 Case Management Discharge Planning Summary COMMENTS ENTERED DATE: 03/04/21 16:20 CT COMMENT TYPE: Discharge Planning REVIEWER: Ruth Gordillo CM met with patient to complete discharge planning assessment and offer availability of needed services. Patient states that she lives independently at home prior to admission. Pt verified that her home environment is safe and has electricity and running water. States that she has a large friend support system. Patient denies need for transportation and state that they have funds for services and medications if needed. PCP is Dr. Bishop and patient uses [facility] at [place] for her pharmacy. CM offered and discussed home health, rehab services, and need for any medical equipment. Patient did not express need for offered services at this time. Transportation home will be provided by her friend Bonnie Orellana. Patient verbalized understanding of signed forms. IMM served, and signed copy placed on chart. DCP REVIEW SUMMARY ANTICIPATED D/C DATE: 03/04/2021 EXPECTED LOS : 8 CASE STATUS: DCP Initiated INITIAL REVIEW: 02/24/2021 INITIAL REVIEWER: Ruth Gordillo FINAL DISCHARGE DISPOSITION: 01 : Home or Self Care (Routine Discharge) FINAL REVIEWER: FINAL REVIEW DATE: DCP Focus Questions & Answers DCP Screen QUESTION: ANSWER High Risk Factors: : Hosp related to CHF, COPD, DM, End Stage Ds, CVA, CA DCP Evaluation QUESTION: ANSWER Patient and/or caregiver agree upon recommended discharge plan? : Yes Patient's ability to cope with chronic illness : d. No chronic illness Patient's current cognitive status: : *Oriented to person, place, situation, time and present Family / Caregiver's ability to cope with chronic illness: : a. Adequate (ability to meet patient's medical needs, ensures patient attends medical appts.) Does the patient have the ability to pay for or attain post discharge needs / services? : Yes Physical Status: : Independent with ADL's Family / Caregiver's ability to cope with chronic illness: : a. Adequate (ability to meet patient's medical needs, ensures patient attends medical appts.) Functional screen assessment: : Basic needs can adequately be met by self Is there a likelihood that the patient will require additional services to return to the preadmission environment? : Yes Equipment needed for post hospitalization: : None Living Arrangements: : Home Alone with Support Results of this evaluation have been discussed with: : Patient Baseline cognitive status: : *Oriented to person, place, situation, time and present Patient with capacity for self-care or can be cared for in same environment as prior to hospitalization? : Yes Physical environment modification needed / anticipated for discharge: : N/A Medication Management: : Patient states can afford medications Medication Management: : Patient states they do have transportation to pickling operator medications Medication Management: : Patient states can read and understand medication labels Planned post hospital services available for patient? : N/A [facility] Planned post hospital services covered by insurance plan? : N/A Does Patient have transportation to get home and to follow-up medical appointments when discharged from the hospital? : Yes Would patient like to participate in any Care Coordination programs (if applicable): : Not applicable Does the patient have electricity at home? : Yes Does the patient have running water in their house? : Yes Equipment in use: : None Mental health screen: : No mental health history Psychosocial status: : Independent adult (65+) Abuse/Neglect: : None Resources / Services in place: : None DCP Re-evaluation QUESTION: ANSWER Would patient like to participate in any Care Coordination programs (if applicable): : Not applicable PATIENT: CASSANDRA BEARD ENCOUNTER: [id number] MEDICAL RECORD#: [id number] ADMISSION DATE: 02/24/2021 DISCHARGE DATE: ATTENDING MD: NICOL CAMPOS : AGE: 75 MARITAL STATUS: W DC PLAN ID: [id number] FACILITY: [facility] PRINTED ON: 03/04/21 16:25 CT All edits/amendments must be made on the electronic document DICTATION DATE: 03/04/211624 STEWARD/STEWARDESS SMOKE ROOM: BLAINE 03/04/211624 RPT#: [id number] DC DATE: STATUS: ADM IN [facility] [address] [place] [address] END OF REPORT
--- NOTE | 2021-03-04 16:45 | NUR ---
PT DISCHARGED HOME WITH FAMILY MEMBER. DISCHARGE INSTRUCTIONS PROVIDED VERBALLY AND WRITTEN. PT VERBALIZED UNDERSTANDING. IV DC. IV CATH TIP INTACT.
--- NOTE | 2021-03-04 20:09 | MORECARE ---
CASE MANAGEMENT DISCHARGE SUMMARY PATIENT: CASSANDRA BEARD UNIT: [id number] ADM DATE: 02/24/21 AGE: 75 : 43 SEX: F ROOM/BED: D.2103 AUTHOR: SID,DOC PHYSICIAN: REFERRING PHYSICIAN: NICOL BISHOP MD DATE OF SERVICE: 03/04/21 Case Management Discharge Planning Summary COMMENTS ENTERED DATE: 03/04/21 16:20 CT COMMENT TYPE: Discharge Planning REVIEWER: Ruth Gordillo CM met with patient to complete discharge planning assessment and offer availability of needed services. Patient states that she lives independently at home prior to admission. Pt verified that her home environment is safe and has electricity and running water. States that she has a large friend support system. Patient denies need for transportation and state that they have funds for services and medications if needed. PCP is Dr. Bishop and patient uses [facility] at [place] for her pharmacy. CM offered and discussed home health, rehab services, and need for any medical equipment. Patient did not express need for offered services at this time. Transportation home will be provided by her friend Bonnie Orellana. Patient verbalized understanding of signed forms. IMM served, and signed copy placed on chart. DCP REVIEW SUMMARY ANTICIPATED D/C DATE: 03/04/2021 EXPECTED LOS : 8 CASE STATUS: DCP Initiated INITIAL REVIEW: 02/24/2021 INITIAL REVIEWER: Ruth Gordillo FINAL DISCHARGE DISPOSITION: 01 : Home or Self Care (Routine Discharge) FINAL REVIEWER: FINAL REVIEW DATE: DCP Focus Questions & Answers DCP Screen QUESTION: ANSWER High Risk Factors: : Hosp related to CHF, COPD, DM, End Stage Ds, CVA, CA DCP Evaluation QUESTION: ANSWER Patient and/or caregiver agree upon recommended discharge plan? : Yes Patient's ability to cope with chronic illness : d. No chronic illness Patient's current cognitive status: : *Oriented to person, place, situation, time and present Family / Caregiver's ability to cope with chronic illness: : a. Adequate (ability to meet patient's medical needs, ensures patient attends medical appts.) Does the patient have the ability to pay for or attain post discharge needs / services? : Yes Physical Status: : Independent with ADL's Family / Caregiver's ability to cope with chronic illness: : a. Adequate (ability to meet patient's medical needs, ensures patient attends medical appts.) Functional screen assessment: : Basic needs can adequately be met by self Is there a likelihood that the patient will require additional services to return to the preadmission environment? : Yes Equipment needed for post hospitalization: : None Living Arrangements: : Home Alone with Support Results of this evaluation have been discussed with: : Patient Baseline cognitive status: : *Oriented to person, place, situation, time and present Patient with capacity for self-care or can be cared for in same environment as prior to hospitalization? : Yes Physical environment modification needed / anticipated for discharge: : N/A Medication Management: : Patient states can afford medications Medication Management: : Patient states they do have transportation to pepper picker medications Medication Management: : Patient states can read and understand medication labels Planned post hospital services available for patient? : N/A [facility] Planned post hospital services covered by insurance plan? : N/A Does Patient have transportation to get home and to follow-up medical appointments when discharged from the hospital? : Yes Would patient like to participate in any Care Coordination programs (if applicable): : Not applicable Does the patient have electricity at home? : Yes Does the patient have running water in their house? : Yes Equipment in use: : None Mental health screen: : No mental health history Psychosocial status: : Independent adult (65+) Abuse/Neglect: : None Resources / Services in place: : None DCP Re-evaluation QUESTION: ANSWER Would patient like to participate in any Care Coordination programs (if applicable): : Not applicable PATIENT: CASSANDRA BEARD ENCOUNTER: [id number] MEDICAL RECORD#: [id number] ADMISSION DATE: 02/24/2021 DISCHARGE DATE: 03/04/2021 ATTENDING MD: NICOL CAMPOS : 194- AGE: 75 MARITAL STATUS: W DC PLAN ID: [id number] FACILITY: [facility] PRINTED ON: 03/04/21 20:08 CT All edits/amendments must be made on the electronic document DICTATION DATE: 03/04/212007 FRONT OFFICE ASSOCIATE: BLAINE 03/04/212007 RPT#: [id number] DC DATE:03/04/21 STATUS: DIS IN [facility] [address] [place] [address] END OF REPORT
--- NOTE | 2021-03-05 10:04 | DS ---
PATIENT:CASSANDRA BEARD :41 MEDICAL RECORD: [id number] DISCHARGE SUMMARY ADMISSION DATE: 02/24/21 DISCHARGE DATE: 03/04/21 DISCHARGE DIAGNOSES: Severe aortic regurgitation, congestive heart failure, diastolic pulmonary edema, and hypoxemia. CONSULTANTS: 1. Joseph Whalen MD 2. Paddy Franco MD HOSPITAL COURSE: A 75-year-old female admitted from the office with increasing shortness of breath rather abrupt onset over 2 days prior to admission. She had a new blowing mitral murmur and congestive failure on her chest x-ray. She was admitted, placed on diuresis in the cardiac unit. An echocardiogram was performed showing severe mitral regurgitation and possible chordae tear. She diuresed nicely and hypoxemia did improve. She was seen in consultation by cardiology and cardiovascular surgery and mitral valve replacement was recommended. Cardiac catheterization was done showing normal coronary arteries with mildly elevated right heart pressures with EF of 50% or better. PATRICIA was performed by Dr. Dos Santos showing an EF of greater than 55%. Aortic valve is tricuspid. No AI noted. Mitral valve was prolapsed. The posterior leaflet with severe MR and the anterior directed jet wrapping around the entire length of the septum. They did not note a ruptured chordae and suspected it was a different plane of the prolapse itself. A 1 cm vegetation was noted on the tricuspid valve, thought to be old with calcium involved. There was mild TR. Dr. Franco from cardiovascular surgery discussed potential mitral valve replacement with the patient. She requested a second opinion. The patient was diuresed. O2 sats were now 92-94% walking the halls with standby assistance. She elects to go home instead of going to rehab and will coordinate with Dr. Whalen, a cardiovascular second opinion prior to surgery, which she may opt to do here after a second opinion. We will have home health involved to discharge. DISCHARGE MEDICATIONS: 1. Coreg 3.125 mg p.o. b.i.d. 2. Bumex 1 mg p.o. b.i.d. 3. K-Dur 20 mEq p.o. daily. 4. Levothyroxine 25 mcg p.o. q.a.m. 5. Vitamin E 200 units daily. 6. MiraLax 17 grams p.o. daily p.r.n. constipation. DIET: Low sodium. Home health to follow BMP in 48 hours with the results to me. ACTIVITY: Progressive as tolerated. Return to clinic to see me in [address] Whalen in 1 month. TRANSINT:[id number] Voice Confirmation ID: [id number] DOCUMENT ID: [id number] DISCHARGE SUMMARY REPORT [id number] CASSANDRA BEARD TIMOTHY MD at 1004 CC: [id number] DICTATION DATE: 03/04/211426 SHREDDER OPERATOR: 03/05/21 0020 DIS IN 03/04/21 [facility] [address] [place] [address]
--- NOTE | 2021-03-08 15:31 | PN ---
PATIENT:CASSANDRA BEARD MEDICAL RECORD: [id number] [facility] DATE: 02/24/21 PROGRESS NOTE DATE OF SERVICE: 02/27/2021 SUBJECTIVE: The patient is sitting, eating lunch, in no apparent distress. OBJECTIVE: VITAL SIGNS: Blood pressure 115s over 70s, pulse 70 (regular). HEENT: Sclerae are clear. NECK: Supple; no appreciated JVD. CARDIOVASCULAR: She has got a III/ holosystolic murmur with regular rhythm and rate. LUNGS: Clear bilaterally. ABDOMEN: Benign. EXTREMITIES: Negative for edema. NEUROLOGIC: Nonfocal. 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 ASSESSMENT: 1. Sick sinus syndrome -- permanent pacemaker. 2. Hypokalemia. 3. Congestive heart failure. 4. Moderate mitral regurgitation. PLAN: Continue with current medical management at this time. Given the patient transthoracic echocardiographic finding, I recommend the patient undergo PATRICIA for further assessment of mitral valve apparatus/regurgitation. Further recommendations clinically indicated. TRANSINT:[id number] Voice Confirmation ID: [id number] DOCUMENT ID: [id number] BLANCA KRAUS MD at 1531 CC: [id number] DICTATION DATE: 02/27/21 1216 [place] MACHINE INSPECTOR: 03/01/21 1506 DIS IN 03/04/21 [facility] [address] [facility] [address]
== END 2021-03-04 16:47 | disposition home or self-care (01) | DRG 286 ==
LOC: D.ER 09:09 → D.M2 12:19
PROVIDERS: Emergency Medicine; Internal Medicine Interventional Cardiology; ADMIT Family Medicine; ATTEND Family Medicine
PROC: 4A023N8 Measurement of Cardiac Sampling and Pressure, Bilateral, Percutaneous Approach (ICD-10-PCS; 2021-03-02)
PROC: B2111ZZ Fluoroscopy of Multiple Coronary Arteries using Low Osmolar Contrast (ICD-10-PCS; principal; 2021-03-02 09:58)
PROC: B2161ZZ Fluoroscopy of Right and Left Heart using Low Osmolar Contrast (ICD-10-PCS; 2021-03-02 09:58)
DX: I11.0 Hypertensive heart disease with heart failure (principal); I50.31 Acute diastolic (congestive) heart failure; J96.91 Respiratory failure, unspecified with hypoxia; Z20.822 Contact with and (suspected) exposure to COVID-19; E87.6 Hypokalemia; I34.0 Nonrheumatic mitral (valve) insufficiency; R01.1 Cardiac murmur, unspecified; J40 Bronchitis, not specified as acute or chronic; E78.5 Hyperlipidemia, unspecified; I25.5 Ischemic cardiomyopathy; Z95.0 Presence of cardiac pacemaker; K59.00 Constipation, unspecified